=== PATIENT | male | born 1985 | race Caucasian/White ===

== ENCOUNTER 2020-08-24 04:56 | Emergency (ER) | payer SELFPAY ==
[~2020-08-24] VITALS: Ht 185.4 cm; Wt 77.1 kg
[2020-08-24 05:02] VITALS: BP 108/76
--- NOTE | 2020-08-24 05:05 | NUR ---
PT TAKEN TO [facility]. PD AT BEDSIDE.
[2020-08-24 05:25] VITALS: BP 108/76
--- NOTE | 2020-08-24 05:25 | NUR ---
NO NURSING INTERVENTIONS NEEDED
--- NOTE | 2020-08-24 05:25 | NUR ---
Patient discharged with v/s stable. Written and verbal after care instructions given and explained. Patient verbalized understanding. Police with in custody. All questions addressed prior to discharge. Advised to follow up with PMD.
== END 2020-08-24 05:25 ==
LOC: MED 04:56
DX: M25.511 Pain in right shoulder (principal); Z02.89 Encounter for other administrative examinations; V89.2XXA Person injured in unspecified motor-vehicle accident, traffic, initial encounter; Y93.89 Activity, other specified; Y92.89 Other specified places as the place of occurrence of the external cause; Y99.8 Other external cause status
CPT/HCPCS: 99283